=== PATIENT | male | born 1985 | race Caucasian/White ===

== ENCOUNTER → 2023-02-21 11:19 | Outpatient (CLI) | payer OTHER, SELFPAY ==
--- NOTE | ~2023-02-21 | CT_ITS ---
EXAMINATION: CT soft tissue neck w con DATE: 02/21/2023 11:47 INDICATION: Tonsillar abscess. TECHNIQUE: Computed tomography (CT) of the neck was performed with 75 mL Omnipaque-350 intravenous co ntrast. Automated exposure control and iterative reconstruction technique were employed. The dose-andrea gth product was 459.66 mGy-cm. COMPARISON: None FINDINGS: The adenoids and palatine tonsils are enlarged. There is a 2.1 x 1.7 cm peritonsillar absce ss on the right. There is mild bilateral high internal jugular chain lymphadenopathy. The cervical ca rotid arteries are normal. There is kyphosis of cervical spine. IMPRESSION: 1. 2.1 x 1.7 cm right peritonsillar abscess. 2. Mild bilateral cervical lymphadenopathy, likely reactive. Reviewed, dictated and finalized at location A.
== END ==
PROVIDERS: PCP Pediatrics; Visit Provider Family Medicine
DX: J36 Peritonsillar abscess (principal); R59.0 Localized enlarged lymph nodes
CPT/HCPCS: 70491; Q9967